=== PATIENT | male | born 2000 | race Hispanic/Latino ===

== ENCOUNTER 2021-08-23 10:35 | Emergency (ER) | payer OTHER, SELFPAY ==
[2021-08-23 10:47] VITALS: BP 129/86; PULSE 73; RESP 16; TEMP 37.1; O2SAT 98; BMI 25.0
--- NOTE | 2021-08-23 11:26 | EDS_ITS ---
HPI <DWIGHT Shaikh - Last Filed: 08/23/21 12:05> History of Present Illness Chief Complaint: Laceration Narrative Narrative: Patient was at work when he accidentally sustained a laceration to his left forearm. He is right-hand dominant. This happened just prior to arrival. He denies weakness, numbness, or tingling. Bleeding is controlled. Last tetanus unknown. PFSH <DWIGHT Shaikh - Last Filed: 08/23/21 12:05> PFSH Medical History no medical history Home Medications NK 08/23/21 [History Last Taken Unknown] Allergy/AdvReac Type Severity Reaction Status Date / Time No Known Allergies Allergy Verified 08/23/21 10:54 Social History Smoking Status: Never smoker ROS <DWIGHT Shaikh - Last Filed: 08/23/21 12:05> ROS ED ROS Narrative Constitutional: Negative for fever, chills, malaise. Eyes: Negative for visual change. ENT: Negative for sore throat, rhinorrhea. CVS: Negative for palpitations, chest pain. Respiratory: Negative for shortness of breath, cough. GI: Negative for abdominal pain, nausea, vomiting. : Negative for dysuria. Neuro: Negative for motor/sensory dysfunction. Skin: Positive for wound. Negative for rash, abscess. Musc: Negative for joint pain, swelling, trauma. Heme: Negative for easy bruising, bleeding, lymphadenopathy. EXAM <DWIGHT Shaikh - Last Filed: 08/23/21 12:05> Physical Exam Narrative Exam Narrative: CONST: Patient sitting in no acute distress. EYES: Normal inspection. NECK: Normal inspection. RESP: No respiratory distress, CTAB. CVS: Regular rate and rhythm, no murmur, no gallop. SKIN: 2.5 cm laceration middle of the left volar forearm, under tension with exposed subcutaneous fat. No exposed tendons. No active bleeding. EXTREMITIES: Normal appearance, full range of motion of left elbow and wrist, motor and sensation intact in median ulnar and radial distributions. 2+ radial pulse. Capillary refill brisk in all digits. NEURO: Oriented x4. PSYCH: Normal affect. Const Vital Signs: 08/23/21 10:47 Temperature 98.8 F Temperature Source Temporal Pulse Rate 73 Respiratory Rate 16 Blood Pressure 129/86 H Blood Pressure Mean 100 Pulse Ox 98 Oxygen Delivery Method Room Air <Dr. Omid Nino DO - Last Filed: 08/23/21 12:13> Physical Exam Const Vital Signs: 08/23/21 10:47 Temperature 98.8 F Temperature Source Temporal Pulse Rate 73 Respiratory Rate 16 Blood Pressure 129/86 H Blood Pressure Mean 100 Pulse Ox 98 Oxygen Delivery Method Room Air [facility] <DWIGHT Shaikh - Last Filed: 08/23/21 12:05> [facility] Narrative Medical decision making narrative: Patient presents with left forearm laceration he sustained at work. There is approximately 2.5 cm gaping laceration left mid volar forearm with exposed subcutaneous fat. Extremity is neurovascularly intact. There is no foreign body or active bleeding. No evidence of ligamentous or tendon injury. The wound was anesthetized with 4 cc of 1% lidocaine and thoroughly irrigated with sterile saline. Due to the high tension it was closed with 4-0 Ethilon with 4 simple interrupted sutures with good approximation. His tetanus was updated. We discussed suture care and that they need removed in 10 to 14 days. Patient was discharged in stable condition. 1. Left forearm laceration?simple suture repair <Dr. Omid Nino, - Last Filed: 08/23/21 12:13> [facility] Narrative Medical decision making narrative: Patient seen and evaluated on arrival for laceration to left forearm. Patient initially seen by DWIGHT and I do agree with her assessment and plan. Patient's tetanus was updated today. Patient's wound was sutured with 4 sutures and the patient tolerated this well. Please see procedure note. He is to follow-up outpatient with occupational health. P atient to take ibuprofen and Tylenol for pain. He knows that he will need to have the sutures out in 10 to 14 days. He is to keep the wound clean and dry and monitor for signs of infection. Impression: 1. 2.5 cm left forearm laceration Lab Data Attestation: I reviewed the patient's lab results. Discharge Plan Triage Chief Complaint: Laceration ED Provider: Elina Espinoza Dx/Rx/DC Orders Clinical Impression: Laceration of forearm, left Instructions: ED Laceration Small or ... Prescriptions: No Action NK RF: 0 Primary Care Provider: Care Physician,No Primary Referrals: NOT,DEFINED [NON-STAFF] - Activity Restrictions/Additional Instructions: The stitches need removed by Worker[employer]. in 10 to 14 days. Gently clean the area with soap and water daily and keep clean. Disposition Disposition: Home, Self Care
[2021-08-23] MEDS: Diphth,Pertuss(Acell),Tet Vac 0.5 ML Vial IM (12:06)
[2021-08-23] MEDS: Lidocaine 1% (20 ml mdv) 20 ML Vial INFILT (12:07)
--- NOTE | 2021-08-23 12:18 | ED.RN ---
Pt refused to sign FROI pt filled out FROI with used name. Chart is under legal name.
== END 2021-08-23 12:19 | disposition home or self-care (01) ==
LOC: ED 11:53
PROVIDERS: Emergency Provider Physician Assistant; Visit Provider Physician Assistant
DX: S51.812A Laceration without foreign body of left forearm, initial encounter (principal); Z23 Encounter for immunization; X58.XXXA Exposure to other specified factors, initial encounter
CPT/HCPCS: 12001; 90471; 90715; 99284